=== PATIENT | male | born 1975 | race Caucasian/White ===

== ENCOUNTER 2024-06-06 16:44 | Observation (INO) ==
[2024-06-06 17:35] LABS: Basophils # (auto) 0.06 K/uL (0.00-0.20); Basophils % (auto) 0.5 %; Eosinophils # (auto) 0.03 K/uL (0.00-0.50); Eosinophils % (auto) 0.3 %; Hematocrit (blood only) 40.5 % (42.0-52.0); Immature Granulocytes # (auto) 0.07 K/uL (0.01-0.20); Immature Granulocytes % (auto) 0.6 %; Lymphocytes # (auto) 1.03 K/uL (1.20-3.40); Lymphocytes % (auto) 8.9 %; Mean Corpuscular Hemoglobin 32.1 pg (25.0-34.0); Mean Corpuscular Hgb Conc 34.6 g/dL (32.0-36.0); Mean Corpuscular Volume 92.9 fL (80.0-100.0); Mean Platelet Volume 9.2 fL (9.4-12.4); Monocytes % (auto) 6.9 %; Neutrophils # (auto) 9.58 K/uL (1.40-6.50); Neutrophils % (auto) 82.8 %; Platelet Count 326 K/uL (130-400); RDW Coefficient of Variation 13.9 % (11.5-14.5); RDW Standard Deviation 47.2 fL (36.4-46.3); Red Blood Count 4.36 M/uL (4.70-6.10); White Blood Count 11.57 K/ul (4.8-10.8)
[2024-06-06 17:53] LABS: Albumin Globulin Ratio 1.8 (0.9-2); Albumin Level 4.7 gm/dl (3.4-5.0); BUN Creatinine Ratio 20.6 (10-20); Bilirubin,Total 0.7 mg/dl (0.2-1.0); Calcium 9.5 mg/dl (8.6-10.3); Creatinine Clr Calc Pharmacy 83.9 ml/min; Globulin 2.6 gm/dl (2.5-4.0); Potassium 3.8 mmol/L (3.5-5.1); Total Protein 7.3 gm/dl (6.0-8.3)
[2024-06-06 17:59] LABS: Troponin I High Sensitivity 14.1 pg/ml (0-20)
--- NOTE | 2024-06-06 18:06 | XRay Report ---
XR chest 1V portable HISTORY: 49 years-old Male Chest pain, nonspecific COMPARISON: None TECHNIQUE: AP view of the chest FINDINGS: Cardiac silhouette is upper limits of normal in size. No pneumothorax, pleural effusion or airspace c onsolidation. The bones of the chest appear grossly intact. IMPRESSION: No acute process. ACT 112: Negative or not required by law. The above report was generated using voice recognition software. It may contain grammatical, syntax o r spelling errors. Electronically signed by: Dmitry King M.D. 06/06/2024 6:05 PM
--- NOTE | 2024-06-06 18:19 | Emergency Department Note ---
Impression & Plan Hypertensive crisis, Noncompliance with medications ED Provider Note NAME: SVETLANA HOLLIDAY AGE: 49 SEX: Male INFORMANT: Patient ED PROVIDER(S): Garret Bhardawj MD CHIEF COMPLAINT: Hypertension PLAN: Disposition: Admitted Outpatient prescription management: none Referral: None MEDICAL DECISION MAKING: Patient presented because of hypertension. His blood pressure was significantly elevated. In light of his headache this was concerning for hypertensive crisis/emergency. Patient had an unremarkable head CT. Had no focal examination findings from a neurologic standpoint. Patient was given IV labetalol x 2 for blood pressure control. Given the social issue with his impending car serration, his mild darren, and medication noncompliance further management in the hospital felt to be appropriate to properly manage his severe hypertension. Consultation was made with Dr. Saini of the [facility] service. Patient was evaluated in the ER for further management. Care/management discussed with: lean manager Level of care consideration(s): After review of the information above and other included data, I feel the patient requires escalation of care to admission Triage Nursing notes: reviewed and agree them. Vital Signs: reviewed and remarkable for severe hypertension Additional History obtained from: none Chronic Medical/Social Conditions affecting care: Hypertension, bipolar Prior/ Outside/ External records reviewed: none Differential Diagnosis: Benign hypertension, hypertensive emergency, cardiovascular pathology, toxicologic, pheochromocytoma, electrolyte abnormality, renal disease, endorgan damage, as well as other pathologies. Diagnostics, independently interpreted by me: ECG: Twelve-lead ECG reveals normal sinus rhythm at 96 beats per minute. No evidence of pericarditis, ischemia, ectopy, or dysrhythmia. Cardiac Monitoring: Cardiac monitoring ordered by me: The patient was placed on continuous cardiac monitoring and observed. It revealed a normal sinus rhythm at 89 beats per minute without ectopy or evidence of dysrhythmia. Medical decision rules: none Imaging studies: Head CT: A noncontrast CT scan of the head was performed and was negative for tumor, fracture, intracranial hemorrhage, or other acute pathology. HPI: 49 year old Male arrives for evaluation of hypertension. This started today while being arrested and is noted to be >200. Been off bipolar meds for 2 weeks and did not take BP meds today or yesterday. Has not slept in 3 days. Patient is supposed to be on 4 medications for blood pressure but did not take any of them. The patient also notes the following associated symptoms, darren. JUNE. The patient has been given no medications for relieving factors. Current pain is rated as 4/10. Used marijuana today. Pt denies LOC, fevers, chills, diaphoresis, visual changes, neck pain, chest pain, breathing difficulties, nausea, vomiting, abdominal pain, back pain, melena, hematochezia, urinary symptoms, numbness, weakness, lymphadenopathy, rash, or other complaints. PAST MEDICAL HISTORY: See Below, HTN PAST SURGICAL HISTORY: See Below, SOCIAL HISTORY: See Below, marijuana HOME MEDICATIONS: See Below ALLERGIES: See Below VITALS: See Below PHYSICAL EXAMINATION: GENERAL: Awake, alert, well-appearing, in no distress HENT: Normocephalic, atraumatic. Oropharynx unremarkable. EYES: Normal conjunctiva. Sclera non-icteric. PERRL, EOMI NECK: Inspection normal. Non-tender. Supple. No nuchal rigidity. FROM. No masses. RESPIRATORY: Clear to auscultation. No wheezes. No rales. Normal respiratory effort. CARDIAC: Normal rate. Normal rhythm. No murmurs. No rubs. Extremities warm and well perfused. Pulses equal. No JVD. GI: Soft, non-distended. No tenderness to palpation. No rebound or guarding. No masses. RECTAL: Deferred. MUSCULOSKELETAL: Atraumatic. Chest examination reveals no tenderness. The back is symmetrical on inspection without obvious abnormality. There is no CVA tenderness to palpation. No joint edema. LOWER EXTREMITIES: Calves are equal size bilaterally and non-tender. No edema. No discoloration. NEURO: Normal sensorium. No sensory or motor deficits noted. CN2-12 intact, speech normal. SKIN: No rash or jaundice noted. PSYCH: pressured speech, no SI, No HI. PROCEDURES: none CRITICAL CARE: I have personally spent 30 minutes of critical care time in the direct management of this patient. This includes bedside care, interpretation of diagnostic studies, and testing, discussion with consultants, patient, and other required patient management activities. These minutes are in excess of all separately billable procedures. OBSERVATION NOTE: none Past Med/Surg History Problem List (Updated 06/07/24 @ 02:57 by Garret Bhardwaj MD) Noncompliance with medications (Acute) Hypertensive crisis (Acute) Bipolar 1 disorder Medical History (Updated 06/07/24 @ 02:57 by Garret Bhardwaj MD) Recovering alcoholic Hyperlipidemia Hypertension Surgical History (Updated 06/07/24 @ 01:19 by Piper Saini DO) H/O hemorrhoidectomy Family History (Updated 06/07/24 @ 01:19 by Piper Saini DO) Other No significant family history Social History Smoking Status: Never smoker Second Hand Exposure: No; Do You Dip or Chew Tobacco: Yes (quit 20 yrs ago); Tobacco Cessation Education Requested by Patient: No Hx Alcohol Use: Yes Alcohol type: hard liquor Hx Substance Use: Yes Last Used Substance: Just Prior to Arrival Preferred Language: Croatian Communication Ability: Effective Youth Advocate Required: No Beliefs That Will Affect Care: None Current Living Situation: Family Current Living Situation Comment: lives with sons, 15/17 rs old Other Information That Helps Us Care for You: No Feels Safe at Home: Yes Safety Concerns: Feels Safe At This Time Assistive Devices: None Allergies Allergies Allergy/AdvReac Type Severity Reaction Status Date / Time No Known Allergies Allergy Unverified 06/06/24 20:19 Home Meds Home Medications Medication Instructions Recorded Confirmed amlodipine 10 mg tablet 10 mg PO DAILY 06/06/24 06/06/24 atorvastatin 80 mg tablet 80 mg PO DAILY 06/06/24 06/06/24 carvedilol 25 mg tablet 0 mg PO DIRECTED 06/06/24 06/06/24 hydralazine 25 mg tablet 25 mg PO BID 06/06/24 06/06/24 hydrochlorothiazide 25 mg tablet 25 mg PO DAILY 06/06/24 06/06/24 lisinopril 40 mg tablet 40 mg PO DAILY 06/06/24 06/06/24 venlafaxine 150 mg 150 mg PO DAILY 06/06/24 06/06/24 capsule,extended release 24 hr Results & Data (ED) Vital Signs Vital Signs - 24 hr 06/06/24 16:49 06/06/24 16:54 06/06/24 17:14 Temperature 37.1 C Temperature Source Oral Pulse Rate 102 H 101 H Pulse Rate [Apical] 95 H Respiratory Rate 17 20 Respiratory Effort / Characteristics Respiratory Depth Respiratory Pattern Blood Pressure 228/115 H Blood Pressure [Right Arm] 234/127 H Blood Pressure Mean 152 Blood Pressure Mean [Right Arm] 162 Blood Pressure Position [Right Arm] Pulse Oximetry 99 98 Oxygen Delivery Method Room Air Room Air Sepsis Recent Fever Within 48 Hours No Sepsis New/Unexplained Change in Mental Status N/A Sepsis Action Taken by Nursing No Action Required 06/06/24 17:28 06/06/24 18:00 06/06/24 18:21 Temperature Temperature Source Pulse Rate Pulse Rate [Apical] 89 93 H Respiratory Rate 21 18 Respiratory Effort / Characteristics Non-Labored Spontaneous Respiratory Depth Normal Respiratory Pattern Regular Blood Pressure Blood Pressure [Right Arm] 211/108 H 212/110 H Blood Pressure Mean Blood Pressure Mean [Right Arm] 142 144 Blood Pressure Position [Right Arm] Lying Pulse Oximetry 98 97 97 Oxygen Delivery Method Room Air Room Air Room Air Sepsis Recent Fever Within 48 Hours Sepsis New/Unexplained Change in Mental Status Sepsis Action Taken by Nursing 06/06/24 18:27 06/06/24 18:53 06/06/24 19:22 Temperature Temperature Source Pulse Rate 88 86 88 Pulse Rate [Apical] Respiratory Rate Respiratory Effort / Characteristics Respiratory Depth Respiratory Pattern Blood Pressure 212/110 H 215/128 H 196/110 H Blood Pressure [Right Arm] Blood Pressure Mean Blood Pressure Mean [Right Arm] Blood Pressure Position [Right Arm] Pulse Oximetry Oxygen Delivery Method Sepsis Recent Fever Within 48 Hours Sepsis New/Unexplained Change in Mental Status Sepsis Action Taken by Nursing 06/06/24 19:40 06/06/24 20:00 Temperature Temperature Source Pulse Rate 80 Pulse Rate [Apical] 76 Respiratory Rate 19 Respiratory Effort / Characteristics Respiratory Depth Respiratory Pattern Blood Pressure 148/103 H Blood Pressure [Right Arm] 168/96 H Blood Pressure Mean Blood Pressure Mean [Right Arm] 120 Blood Pressure Position [Right Arm] Pulse Oximetry 97 Oxygen Delivery Method Room Air Sepsis Recent Fever Within 48 Hours Sepsis New/Unexplained Change in Mental Status Sepsis Action Taken by Nursing Laboratory Data 06/06/24 17:05 06/06/24 17:05 Lab Results 06/06/24 06/06/24 Range/Units 17:05 18:33 WBC 11.57 H (4.8-10.8) K/ul RBC 4.36 L (4.70-6.10) M/uL Hgb 14.0 (14.0-18.0) g/dl Hct 40.5 L (42.0-52.0) % MCV 92.9 (80.0-100.0) fL MCH 32.1 (25.0-34.0) pg MCHC 34.6 (32.0-36.0) g/dL RDW Std Deviation 47.2 H (36.4-46.3) fL RDW Coeff of Kaiden 13.9 (11.5-14.5) % Plt Count 326 (130-400) K/uL MPV 9.2 L (9.4-12.4) fL Immature Gran % (Auto) 0.6 % Neut % (Auto) 82.8 % Lymph % (Auto) 8.9 % [place] % (Auto) 6.9 % Eos % (Auto) 0.3 % Baso % (Auto) 0.5 % Neut # (Auto) 9.58 H (1.40-6.50) K/uL Lymph # (Auto) 1.03 L (1.20-3.40) K/uL [place] # (Auto) 0.80 H (0.11-0.59) K/uL Eos # (Auto) 0.03 (0.00-0.50) K/uL Baso # (Auto) 0.06 (0.00-0.20) K/uL Immature Gran # (Auto) 0.07 (0.01-0.20) K/uL Sodium 141 (136-145) mmol/L Potassium 3.8 (3.5-5.1) mmol/L Chloride 106 (98-107) mmol/L Carbon Dioxide 26 (21-32) mmol/L Anion Gap 9 (3-11) BUN 22 (6-23) mg/dl Creatinine 1.07 (0.6-1.4) mg/dl Est Cr Clr Drug Dosing 83.9 ml/min eGFR 84.54 BUN/Creatinine Ratio 20.6 H (10-20) Glucose 111 H (70-99(Fasting)) mg/dl Calcium 9.5 (8.6-10.3) mg/dl Magnesium 2.3 (1.7-2.4) mg/dl Total Bilirubin 0.7 (0.2-1.0) mg/dl AST 53 H (13-39) U/L ALT 76 H (7-52) U/L Alkaline Phosphatase 47 (34-104) U/L Troponin I High Sens 14.1 (0-20) pg/ml Total Protein 7.3 (6.0-8.3) gm/dl Albumin 4.7 (3.4-5.0) gm/dl Globulin 2.6 (2.5-4.0) gm/dl Albumin/Globulin Ratio 1.8 (0.9-2) Lipase 43 (11-82) U/L Adenovirus (PCR) Not Detected (NotDetected) B. pertussis DNA (PCR) Not Detected (NotDetected) B.parapertussis DNA PCR Not Detected (NotDetected) C. pneumoniae DNA (PCR) Not Detected (NotDetected) Coronavirus OC43 (PCR) Not Detected (NotDetected) Coronavirus HKU1 (PCR) Not Detected (NotDetected) Coronavirus 229E (PCR) Not Detected (NotDetected) SARS-CoV-2 (PCR) Not Detected (NotDetected) Coronavirus NL63 (PCR) Not Detected (NotDetected) Human Metapneumovir PCR Not Detected (NotDetected) Influenza Type A (PCR) Not Detected (NotDetected) Influenza Type B (PCR) Not Detected (NotDetected) M. pneumoniae (PCR) Not Detected (NotDetected) Parainfluenza 1 (PCR) Not Detected (NotDetected) Parainfluenza 2 (PCR) Not Detected (NotDetected) Parainfluenza 3 (PCR) Not Detected (NotDetected) Parainfluenza 4 (PCR) Not Detected (NotDetected) RSV (PCR) Not Detected (NotDetected) Entero/Rhino (PCR) Not Detected (NotDetected) Administered Medications Carvedilol (Carvedilol 25 Mg Tab) 25 mg PO BID [facility] Stop: 07/06/24 22:27 Last Admin: 06/06/24 22:56 Dose: 25 mg Documented By: NAY Discontinued Medications Acetaminophen (Acetaminophen 500 Mg Tab) 1,000 mg PO NOW STA Stop: 06/06/24 18:21 Last Admin: 06/06/24 18:28 Dose: 1,000 mg Documented By: TNK Hydralazine HCl (Hydralazine Hcl 25 Mg Tab) 25 mg PO NOW STA Stop: 06/06/24 20:37 Last Admin: 06/06/24 21:23 Dose: 25 mg Documented By: REGGIE Labetalol HCl (Labetalol Hcl Iv 5 Mg/Ml 20ml) 10 mg IV NOW STA Stop: 06/06/24 18:20 Last Admin: 06/06/24 18:27 Dose: 10 mg Documented By: MOLLY Labetalol HCl (Labetalol Hcl Iv 5 Mg/Ml 20ml) 10 mg IV NOW STA Stop: 06/06/24 19:17 Last Admin: 06/06/24 19:22 Dose: 10 mg Documented By: REGGIE Lisinopril (Lisinopril 40 Mg Tab) 40 mg PO NOW STA Stop: 06/06/24 20:37 Last Admin: 06/06/24 21:23 Dose: 40 mg Documented By: REGGIE Venlafaxine HCl (Venlafaxine Hcl 50 Mg Tab) 150 mg PO NOW STA Stop: 06/06/24 20:37 Last Admin: 06/06/24 21:23 Dose: 150 mg Documented By: REGGIE Imaging Data Radiologist's Impression: Chest X-Ray 06/06/24 17:24 XR chest 1V portable HISTORY: 49 years-old Male Chest pain, nonspecific COMPARISON: None TECHNIQUE: AP view of the chest FINDINGS: Cardiac silhouette is upper limits of normal in size. No pneumothorax, pleural effusion or airspace consolidation. The bones of the chest appear grossly intact. IMPRESSION: No acute process. ACT 112: Negative or not required by law. The above report was generated using voice recognition software. It may contain grammatical, syntax or spelling errors. Electronically signed by: Dmitry King M.D. 06/06/2024 6:[address] 06/06/24 18:10 Exam(s): CT HEAD Without Contrast EXAM: CT Head Without Intravenous Contrast CLINICAL HISTORY: Reason for exam: june, HTN. TECHNIQUE: Axial computed tomography images of the head/brain without intravenous contrast. CTDI is 39 mGy and DLP is 626 mGy-cm. Automated exposure control was utilized for the study. A dose lowering technique was utilized adhering to the principles of ALARA. COMPARISON: No relevant prior studies available. FINDINGS: Brain: Unremarkable. No hemorrhage. No significant white matter disease. No edema. No midline shift. Qureshi-white matter differentiation maintained. Ventricles: Unremarkable. No hydrocephalus. Bones/joints: Unremarkable. No acute fracture. Soft tissues: Unremarkable. Sinuses: Unremarkable as visualized. Mastoid air cells: Unremarkable as visualized. No mastoid effusion. IMPRESSION: No acute intracranial process. Electronically signed by: Yoseph Cooper M.D. 06/06/24 19:50 PM Discharge Plan Visit Data Chief Complaint: Hypertension Stated Complaint: HYPERTENSION ED Provider: Garret Bhardwaj Discharge Problem: Hypertensive crisis, Noncompliance with medications Patient Disposition: Admitted As Inpatient Discharge Instructions Interventions: ED Discharge Assessment Last Done: 06/06/24 22:03
[2024-06-06] MEDS: LABETALOL HCL IV 5 MG/ML 20ML IV STA ×2 (18:27→19:22)
[2024-06-06] MEDS: ACETAMINOPHEN 500 MG TAB PO STA (18:28)
[2024-06-06 19:51] LABS: Adenovirus PCR Not Detected (NotDetected); Bordetella parapertussis PCR Not Detected (NotDetected); Bordetella pertussis PCR Not Detected (NotDetected); Chlamydia pneumoniae PCR Not Detected (NotDetected); Coronavirus 229E PCR Not Detected (NotDetected); Coronavirus CoV-2 (COVID19)PCR Not Detected (NotDetected); Coronavirus HKU1 PCR Not Detected (NotDetected); Coronavirus NL63 PCR Not Detected (NotDetected); Coronavirus OC43PCR Not Detected (NotDetected); Human Metapneumovirus PCR Not Detected (NotDetected); Influenza A PCR Not Detected (NotDetected); Influenza B PCR Not Detected (NotDetected); Mycoplasma pneumoniae PCR Not Detected (NotDetected); Parainfluenza Virus 1 PCR Not Detected (NotDetected); Parainfluenza Virus 2 PCR Not Detected (NotDetected); Parainfluenza Virus 3 PCR Not Detected (NotDetected); Parainfluenza Virus 4 PCR Not Detected (NotDetected); Respiratory Syncytial VirusPCR Not Detected (NotDetected); Rhinovirus/Enterovirus PCR Not Detected (NotDetected)
--- NOTE | 2024-06-06 19:51 | CT Scan Report ---
Exam(s): CT HEAD Without Contrast EXAM: CT Head Without Intravenous Contrast CLINICAL HISTORY: Reason for exam: jackman, HTN. TECHNIQUE: Axial computed tomography images of the head/brain without intravenous contrast. CTDI is 39 mGy and DLP is 626 mGy-cm. Automated exposure control was utilized for the study. A dose lowering technique was utilized adhering to the principles of ALARA. COMPARISON: No relevant prior studies available. FINDINGS: Brain: Unremarkable. No hemorrhage. No significant white matter disease. No edema. No midline shift. Qureshi-white matter differentiation maintained. Ventricles: Unremarkable. No hydrocephalus. Bones/joints: Unremarkable. No acute fracture. Soft tissues: Unremarkable. Sinuses: Unremarkable as visualized. Mastoid air cells: Unremarkable as visualized. No mastoid effusion. IMPRESSION: No acute intracranial process. Electronically signed by: Yoseph Cooper M.D. 06/06/24 19:50 PM
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
[2024-06-06] MEDS: hydrALAZINE HCL 25 MG TAB PO STA (21:23)
[2024-06-06] MEDS: lisinopril 40 MG TAB PO STA (21:23)
[2024-06-06] MEDS: VENLAFAXINE HCL 50 MG TAB PO STA (21:23)
[2024-06-06] MEDS ORDERED: ACETAMINOPHEN 325 MG TAB PO PRN (22:28)
[2024-06-06] MEDS ORDERED: ONDANSETRON INJ 2 MG/ML 2 ML VIAL IV PRN (22:28)
[2024-06-06] MEDS: carvediloL 25 MG TAB PO SCH (22:56)
[2024-06-06 23:02] LABS: Magnesium 2.3 mg/dl (1.7-2.4)
[2024-06-06 23:13] LABS: Appearance Urine Clear (Clear); Bacteria Urine Automated None Seen (None Seen); Bilirubin Urine Negative (Negative); Blood Urine Negative (Negative); Cast Urine Automated 0-2 /lpf (0-2); Color Urine Yellow; Epithelial Cell Urine Auto 0-2 /hpf (0-2); Glucose Urine UA Negative (Negative); Ketones Urine Trace (Negative); Leukocyte Esterase Urine Negative (Negative); Nitrite Urine Negative (Negative); Protein Urine Trace (Negative); RBC Urine Automated 0-2 /hpf (0-2); Specific Gravity Urine 1.031 (1.000-1.030); Urobilinogen Urine Negative (Negative); WBC Urine Automated 0-5 /hpf (0-5); pH Urine 6.5 (4.5-7.5)
[2024-06-06 23:42] LABS: Amphetamines+Metham, Urine Neg (Neg); Barbiturates, Urine Neg (Neg); Benzodiazepine, Urine Neg (Neg); Cocaine, Urine Neg (Neg); Fentanyl, Urine Neg (Neg); MDMA (Ecstacy), Urine Neg (Neg); Marijuana, Urine Pos (Neg); Methadone, Urine Neg (Neg); Opiate, Urine Neg (Neg); Phencyclidine, Urine Neg (Neg)
[2024-06-07 06:21] LABS: BUN Creatinine Ratio 21.1 (10-20); Bilirubin Direct 0.1 mg/dl (0-0.2); Bilirubin,Total 0.6 mg/dl (0.2-1.0); Calcium 8.9 mg/dl (8.6-10.3); Creatinine Clr Calc Pharmacy 72.5 ml/min; Potassium 4.7 mmol/L (3.5-5.1); Total Protein 6.1 gm/dl (6.0-8.3)
--- NOTE | 2024-06-07 07:17 | Electrocardiogram Report ---
Test Reason : Blood Pressure : */* mmHG Vent. Rate : 96 BPM Atrial Rate : 96 BPM P-R Int : 156 ms QRS Dur : 90 ms QT Int : 354 ms P-R-T Axes : 60 60 28 degrees QTcB Int : 447 ms Normal sinus rhythm Possible Left atrial enlargement Borderline ECG No previous ECGs available Confirmed by Graham Juarez ([id number]) on 06/07/2024 7:17:38 AM Referred By: REFERRED SELF Confirmed By: Graham Juarez
--- NOTE | 2024-06-07 07:25 | Hospitalist Progress Note ---
Date of Service June 07, 2024 Assessment & Plan (1) Hypertension: Plan: Patient with hypertensive urgency in setting of missing his medications. Headache on arrival now resolved with improved BP control. Presently 165/96 -Resume home medications - Amlodipine, Carvedilol, Hydralazine, HCTZ and Lisinopril. PM doses given in the ER (2) Bipolar 1 disorder: Plan: Patient with Bipolar disorder - on Venlafaxine. Given his history of multi-drug hypertension this agent is likely not the best choice as it can contribute to hypertension. Patient would possibly benefit more from a mood stabilizer? -Will continue Venlafaxine for now (3) Hyperlipidemia: Plan: Chronic -Continue Atorvastatin Admission and Anticipated Discharge Date Admission Date: June 06, 2024 Results & Data Results & Data Vital Signs (Past 12 Hours) Vital Signs Temp Pulse Pulse Resp BP BP Pulse Ox 06/07/24 03:07 98.2 F 72 21 114/68 99 06/06/24 23:22 89 06/06/24 22:26 85 20 165/96 H 97 06/06/24 22:00 83 18 129/73 98 06/06/24 20:00 76 19 168/96 H 97 06/06/24 19:40 80 148/103 H O2 Del Method 06/07/24 03:07 Room Air 06/06/24 23:22 06/06/24 22:26 Room Air 06/06/24 22:00 Room Air 06/06/24 20:00 Room Air 06/06/24 19:40 PG Care Time/CCT Total # of Minutes Spent Total Time Spent with Patient: Total time spent is greater than 50% in coordination of care (as documented) at patient's floor/unit and/or counseling patient: Coding Diagnoses Hypertension I10 Bipolar 1 disorder F31.9 Hyperlipidemia E78.5
[2024-06-07 07:31] VITALS: BP 139/87; RESP 20; TEMP 98.1; O2SAT 98
[2024-06-07] MEDS: hydrALAZINE HCL 25 MG TAB PO SCH (08:12)
[2024-06-07] MEDS: amLODIPine BESYLATE 5 MG TAB PO SCH (08:12)
[2024-06-07] MEDS: ATORVASTATIN 40 MG TAB PO SCH (08:14)
[2024-06-07] MEDS: hydroCHLOROthiazide 25 MG TAB PO SCH (08:14)
[2024-06-07] MEDS: lisinopril 40 MG TAB PO SCH (08:15)
[2024-06-07] MEDS: VENLAFAXINE HCL XR 150 MG CAPXR PO SCH (08:15)
[2024-06-07 12:07] VITALS: PULSE 66
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
[2024-06-09 13:57] LABS: Marijuana Quant, GCMS Urine 143 ng/mL (<5)
== END 2024-06-07 13:01 | disposition home or self-care (01) | DRG 305 ==
LOC: ED 16:44 → 2E 20:35 → INTOOBSV 20:35 → SUATTDRO 20:35 → 2E 22:03